=== PATIENT | female | born 1970 | race Caucasian/White ===

== ENCOUNTER → 2016-08-13 | Day surgery (SDC) | payer OTHER ==
[~2016-08-13] MED LIST: AUGMENTIN PO; B COMPLEX1 EACH PO; GABAPENTIN400 MG PO; PRILOSEC PO; ZYRTEC-D TABLE1 EACH PO
--- NOTE | ~2016-08-13 | OR ---
Unit #: [id number] #: [id number] Patient: NELL CORCORAN [id number] [address] [place], [place] [address] [id number] MR#: [id number] NAME: NELL CORCORAN. ROOM: Date of Procedure: 08/13/2016 Admission Date: 08/13/2016 Surgeon: Kuldeep Villeda M.D. : 1970 Attending Physician: Kuldeep Villeda M.D. Primary Care Physician: Sea Yen D.O. OPERATIVE REPORT JOB NOTE: CC: [facility] PREOPERATIVE DIAGNOSES Back pain, radiculopathy, degenerative lumbar disk disease. POSTOPERATIVE DIAGNOSES Back pain, radiculopathy, degenerative lumbar disk disease. PROCEDURE PERFORMED Lumbar epidural steroid injection with intravenous sedation and fluoroscopic guidance for needle localization. INDICATIONS FOR PROCEDURE The patient is a 46-year-old female with back and right lower extremity radicular pain associated with degenerative disk and spine disease, most significant at the L4-L5 level. The patient has failed extensive attempts of conservative treatment. Plan is for trial of epidural steroids. Risks and benefits were all reviewed. DESCRIPTION OF PROCEDURE The patient was placed in a seated position. Standard monitors were applied. 2 mg of Versed were given for sedation and anxiolysis, which were adequate. Vital signs remained stable. Sterile prep and drape then of the lumbar area was performed. The skin then at the L4-L5 level was localized with 1% lidocaine. An 18-gauge Hustead needle was then advanced via loss of resistance technique and fluoroscopic guidance in toward the epidural space. After confirming proper positioning with fluoroscopy and radiographic contrast, 80 mg Depo-Medrol and 4 mL of 0.125% bupivacaine were deposited. The patient tolerated the procedure otherwise well and was discharged to the recovery room in stable condition. Dictated by... Norma Weaver/les TD: 08/14/2016 00:06 JOB #: [id number] Unit #: [id number] #: [id number] Patient: NELL CORCORAN OPERATIVE REPORT Page 1 of 1 X Kuldeep Villeda, X PROCEDURE OPERATIVE NOTE
== END | disposition home or self-care (01) ==
LOC: CCSC 09:27
DX: M51.16 Intervertebral disc disorders with radiculopathy, lumbar region (principal); E66.01 Morbid (severe) obesity due to excess calories; F32.9 Major depressive disorder, single episode, unspecified; Z79.2 Long term (current) use of antibiotics; Z98.1 Arthrodesis status
CPT/HCPCS: J1040; J2250